=== PATIENT | female | born 1950 | race Caucasian/White ===

== ENCOUNTER 2021-11-06 09:49 | Day surgery (SDC) | payer MEDICARE, SELFPAY ==
[2021-10-28 12:20] VITALS: BMI 31.6
--- NOTE | 2021-11-06 07:17 | WPDANESEPPF ---
Anes - Initial Pre Proc Eval Procedure: Operation Date: 11/06/21 11:00 Proposed Procedures p Cataract Extraction with Lens Implant-Left Eye - Scott Bullock MD Date/Time: 11/06/21 07:17 Surgeon: Scott Bullock MD Pre Op Diagnosis: H25.12 Patient Data Age: 71 Gender: F Height: 1.57 m Weight: 78.5 kg Allergies Allergy/AdvReac Type Severity Reaction Status Date / Time No Known Allergies Allergy Verified 11/06/21 10:23 Home Medications Medication Instructions Recorded Confirmed Type calcium carbonate 600 mg calcium 600 mg PO DAILY 10/28/21 11/06/21 History (1,500 mg) tablet famotidine 40 mg tablet 40 mg PO DAILY 10/28/21 11/06/21 History phentermine 37.5 mg tablet 37.5 mg PO DAILY 10/28/21 11/06/21 History simvastatin 10 mg tablet 10 mg PO DAILY 10/28/21 11/06/21 History Patient hx anesthesia problems: none Family hx anesthesia problems: none Results Review: All pre-operative results and documents have been reviewed as part of the pre-operative evaluation. [facility] Past Medical History Medical History (Updated 11/06/21 @ 07:17 by Karl Ashford DO) GERD (gastroesophageal reflux disease) Hyperlipidemia Social History Social History Smoking status: Never smoker Second hand tobacco smoke exposure: No Alcohol intake: never Substance use type: does not use Living arrangements: with family Spiritual care concerns: No Anes - Eval Final PreProcedure Day of Procedure 11/06/21 07:17 Patient weight: obese Heart: regular rate and rhythm Lungs: clear to auscultation and normal air movement Airway: Mallampati scale class II Neurological: alert and oriented Last oral intake: >/= 8 hours ASA classification: II Emergent: no Anesthetic plan: proceed Anesthesia type and monitoring: monitored anesthesia care and standard monitoring Results Review: All pre-operative results and documents have been reviewed as part of the pre-operative evaluation. Informed Consent: The patient's anesthetic plan and its attendant risks and benefits were discussed with the patient/family/POA. Questions were solicited and answers provided to the satisfaction of the patient/family/POA.
--- NOTE | 2021-11-06 09:46 | WPDHPUPDATE1 ---
History and Physical Update Update Date/Time: 11/06/21 09:46 History and Physical has been reviewed, including an updated exam of the patient. There are NO changes in the patient's condition. Risks, benefits, and alternatives have been discussed and questions answered. Patient agrees to proceed with procedure.
[2021-11-06 10:25] VITALS: BP 150/95; PULSE 92; RESP 20; TEMP 37.2; O2SAT 99
[2021-11-06 10:35] VITALS: BMI 30.4
[2021-11-06] MEDS: TETRACAINE HCL 0.5% OPHTH SOLN 4 ML BTL 1 DROP AFFCTD EYE ×3 (10:50→11:00)
[2021-11-06] MEDS: OFLOXACIN 0.3% OPHTH SOLN 5 ML BTL 1 DROP AFFCTD EYE ×3 (10:50→11:00)
[2021-11-06] MEDS: LIDOCAINE HCL 2% JELLY 5 ML TUBE 1 APPLIC AFFCTD EYE (11:35)
[2021-11-06] MEDS: LIDOCAINE HCL 1% PF INJ 5 ML VIAL 1 ML INTRAOCULA (11:53)
[2021-11-06] MEDS: HOME MEDICATION 1 EACH AFFCTD EYE (11:58)
[2021-11-06 12:03] VITALS: BP 140/81; PULSE 84; RESP 16; O2SAT 98
[2021-11-06] MEDS: acetaZOLAMIDE TAB 250 MG TABLET PO (12:09)
--- NOTE | 2021-11-06 12:26 | WPDANESPN ---
Anes - Prog Note Post-Op Date/Time: 11/06/21 12:26 Cardiovascular status: normal Respiratory status: normal Airway patency: baseline Mental status: baseline Post-Op hydration status: normal Vital Signs: Last Vital Signs Temp 37.2 C 11/06/21 10:25 Pulse 84 11/06/21 12:03 Resp 16 11/06/21 12:03 BP 140/81 11/06/21 12:03 Pulse Ox 98 11/06/21 12:03 O2 Del Method Room Air 11/06/21 12:03 Pain Score (VAS): 0 Post-procedural complaints: none Patient Feedback: Patient satisfied with anesthetic care. Other Findings: Patient vital signs back to baseline. Patient denies nausea and vomiting. Patient's pain under control. Patient OK for discharge.
--- NOTE | 2021-11-06 13:21 | W.PM.PROC2 ---
Procedure Note - Detailed Date of Procedure 11/06/21 Pre-op Diagnosis H25.12 Post-op Diagnosis Same Procedure Performed Cataract Extraction (by Phacoemulsification) and lntraocular Lens Implant LEFT eye Surgeon Scott Bullock MD Description of Procedure The eye was anesthetized with topical 0.75% bupivacaine. After intravenous sedation and placement of monitors, the patient was prepped and draped in the usual sterile manner. A lid speculum was placed. A paracentesis was made, and preservative free 1% lidocaine was instilled in the anterior chamber. The anterior chamber was then filled with Viscoat viscoelastic. A mina keratome was used to create the wound. Continuous tear anterior capsulotomy was performed. The lens was hydro dissected before being removed with phacoemulsification. The remaining lenticular cortex was removed with aspiration. The capsular bag was polished and filled with viscoelastic material. An intraocular lens was chosen, inspected, irrigated and placed within the capsular bag where it was seen to be centered and stable. The viscoelastic material was aspirated. The wound was closed and found to be watertight. Ciloxan drops were placed in the eye. The speculum was removed. A shield was applied. The patient tolerated the procedure well and left the operating room in satisfactory condition. Implants See chart Complications None Condition Stable Disposition Same day
== END 2021-11-06 12:27 | disposition home or self-care (01) ==
PROVIDERS: PCP Nurse Practitioner Adult Health; Visit Provider Student in an Organized Health Care Education/Training Program
PROC: (CPT 66983; principal; 2021-11-06 11:00)
DX: H25.12 Age-related nuclear cataract, left eye (principal)
CPT/HCPCS: 66984

== ENCOUNTER 2021-12-04 09:48 | Day surgery (SDC) | payer MEDICARE, SELFPAY ==
[2021-11-21 09:36] VITALS: BMI 31.0
--- NOTE | 2021-12-03 20:56 | WPDANESEPPF ---
Anes - Initial Pre Proc Eval Procedure: Operation Date: 12/04/21 11:00 Proposed Procedures p Cataract Extraction with Lens Implant-Right Eye - Scott Bullock MD Date/Time: 12/03/21 20:56 Surgeon: Scott Bullock MD Pre Op Diagnosis: H25.11 Patient Data Age: 71 Gender: F Height: 1.6 m Weight: 79.5 kg Allergies Allergy/AdvReac Type Severity Reaction Status Date / Time No Known Allergies Allergy Verified 12/04/21 10:26 Home Medications Medication Instructions Recorded Confirmed Type calcium carbonate 600 mg calcium 600 mg PO DAILY 10/28/21 11/21/21 History (1,500 mg) tablet famotidine 40 mg tablet 40 mg PO DAILY 10/28/21 11/21/21 History phentermine 37.5 mg tablet 37.5 mg PO DAILY 10/28/21 11/21/21 History simvastatin 10 mg tablet 10 mg PO DAILY 10/28/21 11/21/21 History Patient hx anesthesia problems: none Family hx anesthesia problems: none Results Review: All pre-operative results and documents have been reviewed as part of the pre-operative evaluation. [facility] Past Medical History Medical History (Updated 11/06/21 @ 07:17 by Karl Ashford DO) GERD (gastroesophageal reflux disease) Hyperlipidemia Social History Social History Smoking status: Never smoker Second hand tobacco smoke exposure: No Alcohol intake: never Substance use type: does not use Living arrangements: with family Spiritual care concerns: No Anes - Eval Final PreProcedure Day of Procedure 12/03/21 20:56 Patient weight: obese Heart: regular rate and rhythm Lungs: clear to auscultation and normal air movement Airway: Mallampati scale class II Neurological: alert and oriented Last oral intake: >/= 8 hours ASA classification: II Emergent: no Anesthetic plan: proceed Anesthesia type and monitoring: monitored anesthesia care and standard monitoring Results Review: All pre-operative results and documents have been reviewed as part of the pre-operative evaluation. Informed Consent: The patient's anesthetic plan and its attendant risks and benefits were discussed with the patient/family/POA. Questions were solicited and answers provided to the satisfaction of the patient/family/POA.
--- NOTE | 2021-12-04 09:43 | WPDHPUPDATE1 ---
History and Physical Update Update Date/Time: 12/04/21 09:43 History and Physical has been reviewed, including an updated exam of the patient. There are NO changes in the patient's condition. Risks, benefits, and alternatives have been discussed and questions answered. Patient agrees to proceed with procedure.
[2021-12-04 10:20] VITALS: BP 149/93; PULSE 106; RESP 18; TEMP 36.3; O2SAT 97
[2021-12-04] MEDS: TETRACAINE HCL 0.5% OPHTH SOLN 4 ML BTL 1 DROP AFFCTD EYE ×3 (10:23→10:33)
[2021-12-04] MEDS: OFLOXACIN 0.3% OPHTH SOLN 5 ML BTL 1 DROP AFFCTD EYE (10:23)
[2021-12-04] MEDS: LIDOCAINE HCL 2% JELLY 5 ML TUBE 1 APPLIC AFFCTD EYE (11:27)
[2021-12-04] MEDS: LIDOCAINE HCL 1% LOCAL INJ 2 ML AMPUL INFILTRATE (11:41)
[2021-12-04] MEDS: LIDOCAINE HCL 1% PF INJ 5 ML VIAL 1 ML INTRAOCULA (11:41)
[2021-12-04] MEDS: HOME MEDICATION 1 EACH AFFCTD EYE (11:49)
[2021-12-04] MEDS: NEOMYCIN/POLYMYXIN/DEXAMETH OP OINT 3.5 GM TUBE 1 APPLIC AFFCTD EYE (11:50)
[2021-12-04 11:52] VITALS: BP 137/79; PULSE 95; RESP 20; O2SAT 97
--- NOTE | 2021-12-04 11:52 | WPDANESPN ---
Anes - Prog Note Post-Op Date/Time: 12/04/21 11:52 Cardiovascular status: normal Respiratory status: normal Airway patency: baseline Mental status: baseline Post-Op hydration status: normal Vital Signs: Last Vital Signs Temp 36.3 C L 12/04/21 10:20 Pulse 106 H 12/04/21 10:20 Resp 18 12/04/21 10:20 BP 149/93 H 12/04/21 10:20 Pulse Ox 97 12/04/21 10:20 O2 Del Method Room Air 12/04/21 10:20 Pain Score (VAS): 0 Patient Feedback: Patient satisfied with anesthetic care.
--- NOTE | 2021-12-04 11:55 | W.PM.PROC2 ---
Procedure Note - Detailed Date of Procedure 12/04/21 Pre-op Diagnosis H25.11 Post-op Diagnosis Same Procedure Performed Cataract Extraction (by Phacoemulsification) and lntraocular Lens Implant RIGHT eye Surgeon Scott Bullock MD Description of Procedure The eye was anesthetized with topical 0.75% bupivacaine. After intravenous sedation and placement of monitors, the patient was prepped and draped in the usual sterile manner. A lid speculum was placed. A paracentesis was made, and preservative free 1% lidocaine was instilled in the anterior chamber. The anterior chamber was then filled with Viscoat viscoelastic. A mina keratome was used to create the wound. Continuous tear anterior capsulotomy was performed. The lens was hydro dissected before being removed with phacoemulsification. The remaining lenticular cortex was removed with aspiration. The capsular bag was polished and filled with viscoelastic material. An intraocular lens was chosen, inspected, irrigated and placed within the capsular bag where it was seen to be centered and stable. The viscoelastic material was aspirated. The wound was closed and found to be watertight. Ciloxan drops were placed in the eye. The speculum was removed. A shield was applied. The patient tolerated the procedure well and left the operating room in satisfactory condition. Implants See chart Complications None Condition Stable Disposition Same day
[2021-12-04] MEDS: acetaZOLAMIDE TAB 250 MG TABLET PO (12:00)
[2021-12-04 12:02] VITALS: BP 135/83; PULSE 92; RESP 20; O2SAT 99
== END 2021-12-04 12:16 | disposition home or self-care (01) ==
PROVIDERS: PCP Nurse Practitioner Adult Health; Visit Provider Student in an Organized Health Care Education/Training Program
PROC: (CPT 66983; principal; 2021-12-04 11:00)
DX: H25.11 Age-related nuclear cataract, right eye (principal)
CPT/HCPCS: 66984

== ENCOUNTER 2022-05-20 09:14 | Outpatient (CLI) | payer MEDICARE, SELFPAY ==
[2022-05-20 20:01] LABS: Basophils Percent Auto 0.5 % (0.2-1.2); Eosinophils Absolute Auto 0.1 K/mm3 (0-0.3); Hematocrit 45.4 % (37.0-47.0); Hemoglobin 14.7 g/dL (12.0-15.0); Immature Granulocyte Absolute 0.02 K/mm3 (0.00-0.031); Immature Granulocyte Percent A 0.3 % (0-0.5); Lymphocytes Percent Auto 26.5 % (18.3-44.2); Mean Corpuscular HGB Conc 32.4 g/dl (32-36); Mean Corpuscular Hemoglobin 32.2 pg (26-34); Mean Corpuscular Volume 99.6 fl (80-100); Mean Platelet Volume 10.6 fl (7.4-10.4); Monocytes Absolute Auto 0.5 K/mm3 (0.1-0.6); Monocytes Percent Auto 8.5 % (2.6-8.5); Neutrophils Absolute Auto 3.8 K/mm3 (1.3-6.7); Neutrophils Percent Auto 63.2 % (45.5-73.1); Platelet Count Result 318 k/mm3 (150-375); Red Blood Count 4.56 M/mm3 (4.2-5.4); Red Cell Distribution Width 12.5 % (11.5-14.5)
[2022-05-20 20:20] LABS: Alanine Aminotransferase 30 U/L (6-35); Albumin Level 4.6 g/dL (3.5-5.1); Alkaline Phosphatase 139 U/L (38-126); Anion Gap 8 mmol/L (8-16); Aspartate Amino Transferase 34 U/L (14-36); Bilirubin,Total 0.8 mg/dL (0.2-1.3); Blood Urea Nitrogen 33 mg/dL (7-17); Calcium 9.4 mg/dL (8.4-10.2); Carbon Dioxide 27 mmol/L (22-30); Chloride 105 mmol/L (98-107); Cholesterol 259 mg/dL (0-200); Estimated Glomerular Filt Rate > 60; Glucose 94 mg/dL (65-110); HDL Direct 76 mg/dL; Potassium 4.2 mmol/L (3.4-5.0); Sodium 140 mmol/L (137-145); Triglycerides 82 mg/dL (<150)
[2022-05-20 20:32] LABS: LDL Cholesterol Direct 120 mg/dL
[2022-05-20 23:15] LABS: Vitamin D 25 Hydroxy 32.3 ng/mL
== END 2022-05-20 09:15 | disposition home or self-care (01) ==
LOC: ANHBWCLAB 09:17
PROVIDERS: PCP Family Medicine; Visit Provider Family Medicine
DX: I67.82 Cerebral ischemia (principal); E78.5 Hyperlipidemia, unspecified; K21.9 Gastro-esophageal reflux disease without esophagitis; G47.33 Obstructive sleep apnea (adult) (pediatric); E55.9 Vitamin D deficiency, unspecified
CPT/HCPCS: 36415; 80053; 80061; 82306; 85025

== ENCOUNTER 2022-07-04 09:38 | Outpatient (CLI) | payer MEDICARE, SELFPAY ==
[2022-07-04 19:11] LABS: Alanine Aminotransferase 30 U/L (6-35); Albumin Level 4.3 g/dL (3.5-5.1); Alkaline Phosphatase 143 U/L (38-126); Anion Gap 9 mmol/L (8-16); Aspartate Amino Transferase 63 U/L (14-36); Bilirubin,Total 0.7 mg/dL (0.2-1.3); Blood Urea Nitrogen 34 mg/dL (7-17); Calcium 9.1 mg/dL (8.4-10.2); Carbon Dioxide 23 mmol/L (22-30); Chloride 106 mmol/L (98-107); Estimated Glomerular Filt Rate > 60; Glucose 106 mg/dL (65-110); Potassium 3.9 mmol/L (3.4-5.0); Sodium 138 mmol/L (137-145)
== END 2022-07-04 09:39 | disposition home or self-care (01) ==
PROVIDERS: PCP Family Medicine; Visit Provider Family Medicine
DX: R74.8 Abnormal levels of other serum enzymes (principal); R79.9 Abnormal finding of blood chemistry, unspecified
CPT/HCPCS: 36415; 80048; 80076

== ENCOUNTER 2022-08-06 02:21 | Day surgery (SDC) | payer MEDICARE, SELFPAY ==
[2022-07-24 13:07] VITALS: BMI 32.8
[2022-08-06 06:20] VITALS: BP 178/93; PULSE 93; RESP 18; TEMP 36.3; O2SAT 99; BMI 32.5
[2022-08-06] MEDS: LACTATED RINGERS 1,000 ML 150 ML IV CONT (06:41)
--- NOTE | 2022-08-06 07:08 | P.PNAN_ITS ---
Anes - Initial Pre Proc Eval Procedure: Operation Date: 08/06/22 07:30 Proposed Procedures p Esophagogastroduodenoscopy & Screening Colonoscopy - Dwight Lee MD Date/Time: 08/06/22 07:08 Surgeon: Dwight Yadav MD Pre Op Diagnosis: GERD, neoplasm screening Patient Data Age: 72 Gender: F Height: 1.6 m Weight: 83.3 kg Last Vital Signs Temp 36.3 C L 08/06/22 06:20 Pulse 93 08/06/22 06:20 Resp 18 08/06/22 06:20 BP 178/93 H 08/06/22 06:20 Pulse Ox 99 08/06/22 06:20 O2 Del Method Room Air 08/06/22 06:20 Allergies Allergy/AdvReac Type Severity Reaction Status Date / Time No Known Allergies Allergy Verified 08/06/22 06:26 Home Medications Medication Instructions Recorded Confirmed Type calcium carbonate 600 mg calcium 600 mg PO DAILY 10/28/21 08/06/22 History (1,500 mg) tablet omeprazole 20 mg capsule,delayed 20 mg PO DAILY #90 caps 05/20/22 08/06/22 Rx release meloxicam 15 mg tablet 15 mg PO DAILY 07/24/22 08/06/22 History simvastatin 10 mg tablet 10 mg PO DAILY 07/24/22 08/06/22 History Patient hx anesthesia problems: none Family hx anesthesia problems: none Results Review: All pre-operative results and documents have been reviewed as part of the pre- operative evaluation. [facility] Past Medical History Medical History (Updated 07/06/22 @ 21:07 by Jaxson Bullock MD) GERD (gastroesophageal reflux disease) Hyperlipidemia Family History Family History (Updated 05/20/22 @ 07:47 by Ofelia Huddleston MA) Father Hypertension Mother Heart disease Hypertension Sibling Hypertension Diabetes mellitus Social History Social History (Updated 05/20/22 @ 07:49 by Ofelia Huddleston MA) Smoking status: Former smoker Second hand tobacco smoke exposure: No Alcohol intake: never Substance use: never Substance use type: does not use Lack of Transportation: No Lack of Food: Never True Current Housing: I Have Housing Concerned About Future Housing: No Difficulty Paying Gas/Electric Bills: No Difficulty Paying for Meds: No Currently Unemployed: No Education: High School Diploma/GED Living arrangements: with family Occupation/Education: retired Gender identity (if verbalized by the patient): Female Spiritual care concerns: No Anes - Eval Final PreProcedure Day of Procedure 08/06/22 07:08 Patient weight: obese Heart: regular rate and rhythm Lungs: clear to auscultation and normal air movement Airway: Mallampati scale class II Neurological: alert and oriented Last oral intake: >/= 8 hours ASA classification: II Emergent: no Anesthetic plan: proceed Anesthesia type and monitoring: general GIVS and standard monitoring Results Review: All pre-operative results and documents have been reviewed as part of the pre- operative evaluation. Informed Consent: The patient's anesthetic plan and its attendant risks and benefits were discussed with the patient/family/POA. Questions were solicited and answers provided to the satisfaction of the patient/family/POA.
--- NOTE | 2022-08-06 07:30 | PM.HPGS ---
History of Present Illness History of Present Illness Consent: Risks, benefits, and alternatives have been discussed and questions answered. Patient agrees to proceed with procedure. Chief complaint: GERD, neoplasm screening Narrative: Norma Winn is a 72 year old female with gerd on omeprazole, last colonoscopy about 10 years ago Review of Systems Constitutional: Constitutional: Denies headache(s) and Denies weakness Eyes: Eyes: Denies blurry vision ENT: Reports Normal hearing present, Denies headache(s) and Denies neck pain Cardiovascular: Cardiovascular: Denies chest pain and Denies dyspnea Respiratory: Respiratory: Denies dyspnea Gastrointestinal: Gastrointestinal: Reports no additional gastrointestinal complaints Genitourinary: Genitourinary: Denies dysuria Musculoskeletal: Musculoskeletal: Denies neck pain Integumentary/Breasts: Skin/Breast: Denies dry skin Neurologic: Reports Normal hearing present, Denies headache(s) and Denies weakness Psychiatric: Psychiatric: Denies anxiety Endocrine: Endocrine: Denies change in body appearance Hematologic/Lymphatic: Hematologic/Lymphatic: Denies easy bleeding Allergic/Immunologic: Allergic/Immunologic: Denies urticaria PMFSH Past Medical History Medical History (Updated 07/06/22 @ 21:07 by Jaxson Bullock MD) GERD (gastroesophageal reflux disease) Hyperlipidemia Family History Family History (Updated 05/20/22 @ 07:47 by Ofelia Huddleston MA) Father Hypertension Mother Heart disease Hypertension Sibling Hypertension Diabetes mellitus Social History Social History (Updated 05/20/22 @ 07:49 by Ofelia Huddleston MA) Smoking status: Former smoker Second hand tobacco smoke exposure: No Alcohol intake: never Substance use: never Substance use type: does not use Lack of Transportation: No Lack of Food: Never True Current Housing: I Have Housing Concerned About Future Housing: No Difficulty Paying Gas/Electric Bills: No Difficulty Paying for Meds: No Currently Unemployed: No Education: High School Diploma/GED Living arrangements: with family Occupation/Education: retired Gender identity (if verbalized by the patient): Female Spiritual care concerns: No Meds Home Medications and Allergies Home Medications Medication Instructions Recorded Confirmed Type calcium carbonate 600 mg calcium 600 mg PO DAILY 10/28/21 08/06/22 History (1,500 mg) tablet omeprazole 20 mg capsule,delayed 20 mg PO DAILY #90 caps 05/20/22 08/06/22 Rx release meloxicam 15 mg tablet 15 mg PO DAILY 07/24/22 08/06/22 History simvastatin 10 mg tablet 10 mg PO DAILY 07/24/22 08/06/22 History Allergies Allergy/AdvReac Type Severity Reaction Status Date / Time No Known Allergies Allergy Verified 08/06/22 06:26 Vital Signs Vital Signs - 24 hr 08/06/22 06:20 Temperature 97.3 F L Pulse Rate 93 Respiratory Rate 18 Blood Pressure 178/93 H Pulse Oximetry 99 Oxygen Delivery Room Air Exam Const: General: comfortable and no acute distress HENMT: Face/Nose/Sinus: Normal nares present Eyes: General: appearance normal, both eyes and all related structures Neck: Neck: no JVD Resp: Auscultation: clear to auscultation bilaterally Cardio: Rate: regular rate Rhythm: regular rhythm GI: Inspection: non-distended GI Palp: Yes Soft to palpation Skin: General skin exam: normal color Neuro: General: gait normal Speech: normal speech Extrem: General: normal to inspection Psych: Mental Status: mental status grossly normal Assessment and Plan Assessment and plan (1) GERD (gastroesophageal reflux disease): Code(s): K21.9 - Gastro-esophageal reflux disease without esophagitis Status: Acute Assessment and Plan: egd with bx on ppi (2) Colon cancer screening: Code(s): Z12.11 - Encounter for screening for malignant neoplasm of colon Status: Acute Assessment and P
--- NOTE | 2022-08-06 07:46 | SUR.OPER ---
EGD END TIME: 737 COLON START TIME: 742
[2022-08-06 07:57] VITALS: BP 122/77; PULSE 83; RESP 18; O2SAT 99
[2022-08-06 08:07] VITALS: BP 144/85; PULSE 72; RESP 17; O2SAT 100
[2022-08-06 08:17] VITALS: BP 149/85; PULSE 72; RESP 17; O2SAT 100
== END 2022-08-06 08:26 | disposition home or self-care (01) ==
PROVIDERS: PCP Family Medicine; Visit Provider Internal Medicine Gastroenterology
PROC: 0DJ08ZZ Inspection of Upper Intestinal Tract, Via Natural or Artificial Opening Endoscopic (ICD-10-PCS; CPT 43235; principal; 2022-08-06 07:30)
DX: Z12.11 Encounter for screening for malignant neoplasm of colon (principal); D12.3 Benign neoplasm of transverse colon; K64.8 Other hemorrhoids; K21.9 Gastro-esophageal reflux disease without esophagitis; K44.9 Diaphragmatic hernia without obstruction or gangrene; K29.50 Unspecified chronic gastritis without bleeding; E78.5 Hyperlipidemia, unspecified; E66.9 Obesity, unspecified; Z68.32 Body mass index [BMI] 32.0-32.9, adult
CPT/HCPCS: 45385; 43239; 88305; J2704; J7120

== ENCOUNTER 2022-09-11 10:50 | Outpatient (CLI) | payer MEDICARE, SELFPAY ==
--- NOTE | ~2022-09-11 | MR_ITS ---
EXAMINATION: MR brain/brain stem wo/w con DATE: 09/11/2022 11:46 INDICATION: Benign neoplasm of cerebral meninges. TECHNIQUE: Magnetic resonance imaging (MRI) of the brain and brainstem was performed without and with 17 mL MultiHance intravenous contrast. COMPARISON: Brain MRI 07/08/2005 FINDINGS: There is an 11 mm enhancing extra-axial mass overlying right parietal lobe, consistent with a meningioma, new from 07/08/05. There is no intracranial hemorrhage or acute ischemic infarct. There are scattered areas of nonspecific increased T2-weighted signal intensity in the cerebral white matte r and saira. The ventricles are normal in size. There are likely changes of ocular lens replacement carey rgeries. The paranasal sinuses are clear. The mastoid air cells are normal. IMPRESSION: 1. 11 mm meningioma overlying right parietal lobe, new from 07/08/2005. 2. Extensive nonspecific cerebral white matter disease and pontine disease, which likely represents c hronic small vessel ischemic disease. Reviewed, dictated and finalized at location A. IMPRESSION: 1. 11 mm meningioma overlying right parietal lobe, new from 07/08/2005. 2. Extensive nonspecific cerebral white matter disease and pontine disease, whi ch likely represents chronic small vessel ischemic disease.
== END 2022-09-11 10:51 | disposition home or self-care (01) ==
LOC: ANHIMG 10:57
PROVIDERS: PCP Family Medicine; Visit Provider Nurse Practitioner
DX: D32.0 Benign neoplasm of cerebral meninges (principal); R93.0 Abnormal findings on diagnostic imaging of skull and head, not elsewhere classified
CPT/HCPCS: 70553; A9577

== ENCOUNTER 2022-10-14 06:26 | Day surgery (SDC) | payer MEDICARE, SELFPAY ==
[2022-10-02 12:08] VITALS: BMI 32.4
[2022-10-14] VITALS (7 sets, daily range): BP systolic 145–157; BP diastolic 84–98; PULSE 84–104; RESP 14–20; TEMP 37.4; O2SAT 97–99
--- NOTE | ~2022-10-14 | XR_ITS ---
EXAMINATION: XR fluoroscopy no charge INDICATION: Bilateral sacroiliac joint steroid injection TECHNIQUE: 75 intraoperative fluoroscopic images are submitted for review. Total fluoroscopic time is 31.4 seconds. COMPARISON: None available FINDINGS: Fluoroscopic images demonstrate bilateral sacroiliac joint injection. Please refer to proce dure note for full details. IMPRESSION: 1. Please refer to procedure note for full details. Reviewed, dictated and finalized at location D.
--- NOTE | 2022-10-14 07:17 | WPDHPUPDATE1 ---
History and Physical Update Update Date/Time: 10/14/22 07:17 History and Physical has been reviewed, including an updated exam of the patient. There are NO changes in the patient's condition. Risks, benefits, and alternatives have been discussed and questions answered. Patient agrees to proceed with procedure.
[2022-10-14] MEDS: LIDOCAINE HCL 1% PF INJ 5 ML VIAL AFFCTD EYE (07:51)
[2022-10-14] MEDS: BUPivacaine HCL 0.5% 10 ML AMP 2 ML INFILTRATE (08:06)
--- NOTE | 2022-10-14 08:07 | W.PM.PROC2 ---
Procedure Note - Detailed Date of Procedure 10/14/22 Pre-op Diagnosis Bilateral Sacroiliitis Sacral Spondylosis without radiculopathy Post-op Diagnosis Same Procedure Performed Bilateral SI joint steroid injection with fluoroscopy Surgeon Ezio Gallagher MD Parks Worker None Anesthesia Local Indications Low Back Pain Findings None Description of Procedure INFORMED CONSENT: Risks, benefits and alternatives to the procedure were discussed in detail with the patient who expressed explicit understanding and consent to proceed. Patient was informed verbally and in written form regarding the risks associated with the procedure including the low risk of serious infection, bleeding/bruising, allergic reaction, nerve or organ injury, paralysis, procedural site pain or discomfort, worsening pain and/or mobility, failure to treat and/or disfigurement. The patient expressed explicit understanding and consent to proceed. All materials required for the procedure were available prior to procedure start. Site and side were marked prior to procedure and confirmed in the presence of the patient. PROCEDURE IN DETAIL: The patient was brought to the procedural suite and placed in the prone position. Patient was made comfortable with use of pillows under the head/chest, hips and ankles. Skin overlying the injection site on the affected side(s) was prepared broadly with ChloraPrep applicator and draped in a sterile manner. Aseptic technique was used throughout. The SI joint was identified in the AP view and contralateral oblique angulation with caudal tilt was utilized to optimize visualization of the inferior and medial joint line representing the posterior portion of the joint. Local anesthesia was established by infiltration with approximately 5 mL of 2% lidocaine via a 1-1/2 inch 27-gauge needle. A 22-gauge 3.5 inch Quincke spinal needle was advanced until the needle entered the inferior third of the joint space approximately 1cm cephalad from its most inferior point. In the AP view, 1.5 mL of Omnipaque-300 contrast medium was injected after negative aspiration for CSF, blood or other bodily fluid, showing appropriate intra-articular spread of contrast without evidence of intravascular, perineural or intrathecal placement. A 1.5 mL solution containing 5.0 mg of dexamethasone in 0.5% PF bupivacaine was injected after repeat negative aspiration. Appropriate spread of the injectate was confirmed with washout of previous injected contrast. No parasthesias were elicited. Needle was removed completely intact without difficulty. Images were saved and documented in the patient chart. Patient's skin was cleansed and sterile bandage applied. The patient tolerated the procedure well. The patient was transported to the recovery area in stable condition where they were observed for an appropriate amount of time prior to discharge, without evidence of complication. The patient was instructed to avoid excessive activity for the next 48 hours, including climbing and frequent use of stairs. Showers only for 48 hours. They were instructed not to drive or operate heavy machinery for 24 hours. They are to monitor for severe headaches, fevers, chills, night sweats, erythema/swelling at the site or any other signs of infection, bleeding/bruising, bowel or bladder changes as well as new pain, weakness or numbness in the upper or lower extremity. Should they notice these changes, they are instructed to call our office immediately or report directly to the nearest Emergency Department if no answer or if after posted office hours. COMPLICATIONS: None COMMENTS: None EXPOSURE: Time: 31.4s, Dose: 24.01mGy CONTRAST WASTED: 27mL Omnipaque-300. Drains No Packing No Pathology None sent Complications No immediate complications Condition Stable Disposition PACU [facility] Billing Surgery - Charge Forward: Surgery Billing
== END 2022-10-14 08:20 | disposition home or self-care (01) ==
PROVIDERS: PCP Family Medicine; Visit Provider Anesthesiology Pain Medicine
PROC: (CPT G0260; principal; 2022-10-14 07:30)
DX: M46.1 Sacroiliitis, not elsewhere classified (principal)
CPT/HCPCS: G0260 ×2; 27096; 99199

== ENCOUNTER 2022-11-04 09:00 | Outpatient (RCR) | payer MEDICARE, SELFPAY ==
--- NOTE | 2022-10-01 09:55 | OPREHPOC ---
Outpatient Therapy Plan of Care This is a Multidisciplinary Plan of Care that may contain components documented by all disciplines (PT, OT, and ST.) PT Problem 1 PT Problem #1 Knowledge Deficit PT Goal 1 Goal Pt to be IND with issued HEP Target Visit 8 PT Problem 2 PT Problem #2 Pain PT Goal 1 Goal Pt to report pain no greater than 3/10 in the last week Target Visit 8 PT Goal 2 Goal Pt to report being able to stand for 1 hour prior to an increase in back pain. Target Visit 8 PT Problem 3 PT Problem #3 Impaired Functional Mobil PT Goal 1 Goal Pt to improve 2 min walk distance from 365ft to 400ft Target Visit 8 PT Goal 2 Goal Pt to improve Tinetti score from 15/28 to 22/28 Target Visit 8 PT Problem 4 PT Problem #4 Impaired Strength PT Goal 1 Goal Pt to improve bridger hip abduction strength to 4/5 Target Visit 8 PT Goal 2 Goal Pt to improve 5xSTS time from 23s to 18s Target Visit 8
--- NOTE | 2022-10-01 09:55 | PTOPEVAL1 ---
Assessment and note entered by Nandini Zapien, PT, DPT Evaluation Information Assessment Status Evaluation Diagnosis low back pain Onset chronic Subjective Information Pt states she has severe arthritis in her lower back. She states after doing work around her home she has to hunch forward because the pain is so bad. She states she never takes a break, no matter how badly her back is hurting. She states she reports her pain as being low because she is just used to dealing with it. She states in the morning her legs feel stiff and she is never sure if they are going to hold her or not. She rates her pain at a 3-4 at the worst when viewing the [place] and [place] pain scale. Reported Pain Level Pain Score 0: Self Report Assessment PT Clinical Summary Norma presents to therapy today for her initial evaluation with a diagnosis of chronic low back pain, spondylosis, and polyosteoarthritis. Today she demonstrates decreased core and BLE strength throughout. She demonstrates balance and strength deficits placing her at an increased risk of falls per the 5xSTS test and Tinetti balance screen. She ambulates with moderate gait deviations including a widened, weaving, and shuffled gait. She demonstrates postural abnormalities as well with noted pelvic asymmetries in supine. Skilled therapy services are indicated to address the deficits noted above, for gait and balance training , for pain management, to improve safety, and to promote improved functional mobility. Plan of Care Interventions Electrical Stimulation,Gait Training,Hot Pack/Cold Pack,Manual Therapy,Neuro Re-education,Patient/ Caregiver Educati,Therapeutic Activities, Therapeutic Exercise PT Services Indicated Yes Treatment Frequency and 2x/wk for 4 wks Duration These treatments will address the objective and functional deficits as defined above. The patient will be advanced safely and appropriately in order for the patient to progress towards his/her prior level of function. Additional exercises will be introduced and as well as a comprehensive home exercise program upon discharge, if needed, ?to ensure carryover of functional gains achieved in the clinic. This treatment plan has been reviewed and agreement upon by the patient.
--- NOTE | 2022-10-21 08:43 | PCPTNOTE ---
Patient called to say she could not come in because her back hurts so bad she can't walk.
--- NOTE | 2022-11-04 12:57 | PTOPDC ---
Assessment and note entered by Nandini Zapien, PT, DPT Evaluation Information Assessment Status Progress Diagnosis low back pain Onset chronic Subjective Information Pt states for 2-3 days after therapy she has to hold onto the couch and urrutia d/t pain. She reports she is still able to go out an work out in the garden daily. Pt states she can stand for hours with pain but not to where she needs to go sit down, she states she does not let herself give into the pain. Reported Pain Level Pain Score 4,3: Self Report Assessment PT Clinical Summary Norma presents to therapy today for her initial evaluation with a diagnosis of chronic low back pain, spondylosis, and polyosteoarthritis. Today she continues to demonstrate decreased core and LE strength but has made some improvements. He improved her 2 min walk test distance slightly and improve her 5xSTS time from 23s to 15s. It was recommended that pt continue with skilled therapy services to continue to progress towards goals. Pt states she would rather continue the exercises on her own. She will therefore be discharged at this time per request. Plan of Care PT Services Indicated Yes
== END 2022-11-04 14:00 | disposition home or self-care (01) ==
LOC: ANHGOSHPT 09:00
PROVIDERS: PCP Family Medicine; Visit Provider Anesthesiology Pain Medicine
DX: M54.9 Dorsalgia, unspecified (principal); M47.816 Spondylosis without myelopathy or radiculopathy, lumbar region; M46.1 Sacroiliitis, not elsewhere classified; M96.1 Postlaminectomy syndrome, not elsewhere classified; M15.9 Polyosteoarthritis, unspecified
CPT/HCPCS: 97110; 97112; 97161; 97530

== ENCOUNTER 2022-11-07 09:09 | Outpatient (CLI) | payer MEDICARE, SELFPAY ==
[2022-11-07 18:38] LABS: Alanine Aminotransferase 31 U/L (6-35); Albumin Level 4.3 g/dL (3.5-5.1); Alkaline Phosphatase 126 U/L (38-126); Aspartate Amino Transferase 50 U/L (14-36); Bilirubin,Total 0.9 mg/dL (0.2-1.3)
== END 2022-11-07 09:10 | disposition home or self-care (01) ==
PROVIDERS: PCP Family Medicine; Visit Provider Nurse Practitioner
DX: R74.01 Elevation of levels of liver transaminase levels (principal); R74.8 Abnormal levels of other serum enzymes; E78.5 Hyperlipidemia, unspecified; R53.83 Other fatigue
CPT/HCPCS: 36415; 80076; 84443

== ENCOUNTER 2022-11-11 06:51 | Day surgery (SDC) | payer MEDICARE, SELFPAY ==
--- NOTE | ~2022-11-11 | XR_ITS ---
EXAMINATION: XR fluoroscopy no charge DATE: 11/11/2022 8:10 CDT INDICATION: JUANY L3,4,5 MED BRANCH/DORSAL RAMUS BLOCK . TECHNIQUE: 10 fluoroscopic images of the lumbar spine were obtained during bilateral L3-L5 medial bra nch/dorsal ramus blocks performed by the surgeon. I was not present in the operating room. Fluoroscop y exposure time was 26.5 seconds. Air Kerma 18.72 mGy. COMPARISON: None FINDINGS: Bilateral medial branch blocks at 3 levels, with needles and contrast. IMPRESSION: Fluoroscopic documentation of bilateral L3-L5 medial branch/dorsal ramus blocks. Please refer to the operative note for complete procedural details . Reviewed, dictated and finalized at location K. IMPRESSION: Fluoroscopic documentation of bilateral L3-L5 medial branch/dorsal ramus blocks . Please refer to the operative note for complete procedural details .
--- NOTE | 2022-11-11 07:19 | WPDHPUPDATE1 ---
History and Physical Update Update Date/Time: 11/11/22 07:19 History and Physical has been reviewed, including an updated exam of the patient. There are NO changes in the patient's condition. Risks, benefits, and alternatives have been discussed and questions answered. Patient agrees to proceed with procedure.
[2022-11-11 07:24] VITALS: BP 144/79; PULSE 91; RESP 18; TEMP 36.7; O2SAT 100
[2022-11-11 08:12] VITALS: BP 181/84; PULSE 95; RESP 14; O2SAT 98
[2022-11-11] MEDS: BUPivacaine HCL 0.5% 10 ML AMP INFILTRATE (08:16)
[2022-11-11] MEDS: LIDOCAINE HCL 1% PF INJ 5 ML VIAL XX (08:17)
[2022-11-11 08:20] VITALS: BP 161/75; PULSE 96; RESP 19; O2SAT 97
--- NOTE | 2022-11-11 08:25 | W.PM.PROC2 ---
Procedure Note - Detailed Date of Procedure 11/11/22 Pre-op Diagnosis lumbosacral spondylosis, chronic low back pain Post-op Diagnosis Same Procedure Performed bilateral L3, L4, L5 medial branch/ dorsal ramus blocks (#1) under fluoroscopic guidance with contrast control. Surgeon Ezio Gallagher MD Landscape Horticulture Instructor None. Anesthesia Local Indications diagnostic/prognostic effort to treat chronic low back pain secondary to lumbosacral spondylosis and anticipation of possible thermal radiofrequency ablation. Findings None. Description of Procedure INFORMED CONSENT: Risks, benefits and alternatives to the procedure were discussed in detail with the patient who expressed explicit understanding and consent to proceed. Patient was informed verbally and in written form regarding the risks associated with the procedure including the low risk of serious infection, bleeding/bruising, allergic reaction, nerve or organ injury, paralysis, procedural site pain or discomfort, worsening pain and/or mobility, failure to treat and/or disfigurement. The patient expressed explicit understanding and consent to proceed. All materials required for the procedure were available prior to procedure start. Site and side were marked prior to procedure and confirmed in the presence of the patient. PROCEDURE IN DETAIL: The patient was brought to the procedural suite and placed in the prone position. Patient was made comfortable with use of pillows under the head/chest, hips and ankles. Skin overlying the injection site on the affected side(s) was prepared broadly with ChloraPrep applicator and draped in a sterile manner. Aseptic technique was used throughout. The endplates of the vertebral bodies at the site(s) of interest were aligned in the AP view. Ipsilateral oblique angulation was utilized to optimize visualization of the intersection between the superior articulating process and transverse process at each target site. Local anesthesia was established by infiltration with approximately 5 mL of 1% lidocaine via a 1-1/2 inch 27-gauge needle. A 25-gauge 3.5 inch Quincke spinal needle was advanced until the needle tip contacted periosteum at the target site, Right L3. Lateral view was utilized to confirm the appropriate placement of the needle tip just anterior to the facet line and superior to the pedicle. In the Lateral view, 0.25 mL of Omnipaque 300 contrast medium was injected after negative aspiration for CSF, blood or other bodily fluid, showing appropriate extra-articular spread of contrast without evidence of intravascular, foraminal or intrathecal placement. A 0.5 mL solution of 0.5% PF bupivacaine was injected after negative repeat aspiration. Appropriate spread of the injectate was confirmed with washout of previously injected contrast. No parasthesias were elicited. Needle was removed completely intact without difficulty. The same exact procedure was repeated for all remaining levels on the ipsilateral side, right L4, L5 medial branches/dorsal ramus, modified as necessary to accommodate for the new target location with identical findings and results and no evidence of complication. The same exact procedure was repeated for all remaining levels on the contralateral side, left L3, L4, L5 medial branches/dorsal ramus, modified as necessary to accommodate for the new target location with identical findings and results and no evidence of complication. Images were saved and documented in the patient chart. Patient's skin was cleaned and sterile bandage applied. The patient tolerated the procedure well. The patient was transported to the recovery area in stable condition where they were observed for an appropriate amount of time prior to discharge, without evidence of complication. Patient was instructed on the appropriate completion of a pain diary over the next 12-24 hours. The patient was instructed to avoid excessive activity for the next 48 hours, including climbing and frequen
[2022-11-11 08:28] VITALS: BP 136/82; PULSE 98; RESP 18; O2SAT 98
== END 2022-11-11 08:45 | disposition home or self-care (01) ==
PROVIDERS: PCP Family Medicine; Visit Provider Anesthesiology Pain Medicine
PROC: (CPT 64493; principal; 2022-11-11 08:30)
DX: M47.817 Spondylosis without myelopathy or radiculopathy, lumbosacral region (principal); M54.59 Other low back pain
CPT/HCPCS: 64493 ×2; 99199

== ENCOUNTER 2022-11-26 07:33 | Outpatient (CLI) | payer MEDICARE, SELFPAY ==
--- NOTE | ~2022-11-26 | US_ITS ---
EXAMINATION: US abdomen limited DATE: 11/26/2022 09:45 INDICATION: Abnormal levels of other serum enzymes TECHNIQUE: Multiple grayscale and Doppler ultrasound images of the abdomen were obtained. COMPARISON: None available FINDINGS: The head and body of the pancreas are normal. The pancreatic tail is obscured by bowel gas. The liver is normal with normal echogenicity and echotexture. No surface nodularity. Normal hepatope jean flow in the main portal vein. There is a 5 mm gallbladder polyp versus stone. There are no gallst ones are pericholecystic fluid. The normal common bile duct measures 5 mm. There was no sonographic M urphy sign. IMPRESSION: 1. 5 mm gallbladder polyp versus stone. No sonographic correlate for the patient's symptoms. Reviewed, dictated and finalized at location A. IMPRESSION: 1. 5 mm gallbladder polyp versus stone. No sonographic correlate for the patien t's symptoms.
--- NOTE | 2022-11-26 07:40 | ECHO_ITS ---
Patient Info Name: Norma Winn Age: 72 years : 1950 Gender: Female Ht: 63 in Wt: 182 lbs BSA: 1.95 m2 HR: 88 bpm BP: 149 / 84 mmHg Heart Rhythm: Sinus Rhythm Exam Date: 11/26/2022 7:48 AM Exam Location: [facility] Patient Status: Outpatient Admit Date: 11/26/2022 Staff Ordering Physician: Saravanan Love DO Car Spotter: Sol Dos Santos RDCS Attending Provider: Saravanan Love DO Exam Type: CA echo doppler color flow Study Info Indications R00.2 - Palpitations Complete two-dimensional, color flow and Doppler transthoracic echocardiogram is performed. Summary 1. Complete two-dimensional, color flow and Doppler transthoracic echocardiogram is performed. 2. Left ventricular chamber dimension is normal. 3. Left ventricular systolic function is normal, estimated at 60-65%. 4. There is mild concentric increased left ventricular wall thickness. 5. The left ventricular diastolic function is grade I diastolic dysfunction. 6. Left atrial chamber dimension is mildly enlarged. 7. The mitral valve has mildly calcified annulus. 8. There is trace tricuspid valve regurgitation. 9. No pulmonary hypertension, estimated pulmonary arterial systolic pressure is 24 mmHg. Left Ventricle Tissue doppler E/e' was not performed. Left ventricular chamber dimension is normal. Left ventricular systolic function is normal, estimated at 60-65%. There is mild concentric increased left ventricular wall thickness. The left ventricular diastolic function is grade I diastolic dysfunction. Right Ventricle Right ventricular systolic function is normal and with normal TAPSE 2.0 cm. Right ventricular chamber dimension is normal. Left Atria Left atrial chamber dimension is mildly enlarged. Right Atria Right atrial chamber dimension is normal. Aortic Valve The aortic valve is trileaflet. There is no aortic valve stenosis. There is no aortic valve regurgitation. Pulmonic Valve There is no pulmonic regurgitation. Mitral Valve The mitral valve has mildly calcified annulus. There is no mitral valve stenosis. There is no mitral valve regurgitation. Tricuspid Valve There is trace tricuspid valve regurgitation. No pulmonary hypertension, estimated pulmonary arterial systolic pressure is 24 mmHg. Pericardium/Pleural There is no pericardial effusion. Inferior Vena Cava Normal inferior vena cava with >50% collapse upon inspiration consistent with normal right atrial pressure, 5 mmHg. Aorta The aortic root size at the sinus of Valsalva is normal. Left Ventricular Outflow Tract Name Value Normal LVOT 2D LVOT Diameter 1.8 cm LVOT Doppler LVOT Peak Gradient 5 mmHg LVOT Mean Gradient 2 mmHg LVOT VTI 25 cm LVOT VTI/AV VTI Ratio 0.9 LVOT Stroke Volume 62 ml LVOT CO 4.4 l/min LVOT CI 2.3 l/min/m2 Pulmonic Valve Name Value Normal R
== END 2022-11-26 07:34 | disposition home or self-care (01) ==
PROVIDERS: PCP Family Medicine; Visit Provider Internal Medicine Cardiovascular Disease
DX: K82.4 Cholesterolosis of gallbladder (principal); D32.0 Benign neoplasm of cerebral meninges; R93.1 Abnormal findings on diagnostic imaging of heart and coronary circulation; I20.8 Other forms of angina pectoris; R53.83 Other fatigue; R74.8 Abnormal levels of other serum enzymes; R00.2 Palpitations; I34.81 Nonrheumatic mitral (valve) annulus calcification
CPT/HCPCS: 76705; 93306

== ENCOUNTER 2023-05-21 08:34 | Outpatient (CLI) | payer MEDICARE, SELFPAY ==
[2023-05-21 19:17] LABS: Alanine Aminotransferase 22 U/L (6-35); Alkaline Phosphatase 113 U/L (38-126); Anion Gap 6 mmol/L (8-16); Aspartate Amino Transferase 45 U/L (14-36); Bilirubin,Total 0.7 mg/dL (0.2-1.3); Blood Urea Nitrogen 23 mg/dL (7-17); Calcium 9.7 mg/dL (8.4-10.2); Carbon Dioxide 26 mmol/L (22-30); Chloride 105 mmol/L (98-107); Cholesterol 160 mg/dL (0-200); Estimated Glomerular Filt Rate > 60; Glucose 82 mg/dL (65-110); HDL Direct 59 mg/dL; Potassium 4.3 mmol/L (3.4-5.0); Sodium 137 mmol/L (137-145); Triglycerides 92 mg/dL (<150)
[2023-05-21 19:20] LABS: Hematocrit 44.7 % (37.0-47.0); Hemoglobin 14.2 g/dL (12.0-15.0); Mean Corpuscular HGB Conc 31.8 g/dl (32-36); Mean Corpuscular Hemoglobin 31.6 pg (26-34); Mean Corpuscular Volume 99.3 fl (80-100); Mean Platelet Volume 10.4 fl (7.4-10.4); Platelet Count Result 283 k/mm3 (150-375); Red Cell Distribution Width 12.4 % (11.5-14.5); White Blood Count 5.7 K/mm3 (4.5-10.0)
[2023-05-21 19:28] LABS: LDL Cholesterol Direct 69 mg/dL
[2023-05-21 19:44] LABS: Vitamin D 25 Hydroxy 45.6 ng/mL
[2023-05-21 19:59] LABS: Hepatitis B Surface Antigen Negative (Negative)
[2023-05-21 20:05] LABS: HAV RESULT Negative (Negative); Hepatitis B Core IgM Result Negative (Negative)
[2023-05-21 20:16] LABS: Hepatitis C Virus Antibody Negative (Negative)
[2023-05-21 21:29] LABS: Hepatitis A Antibody IgM 0.01 s/c
[2023-05-21 21:30] LABS: Hepatitis B Core Antibody, IgM 0.03 S/C; Hepatitis B Surface Antigen 0.01 S/C; Hepatitis C Virus Antibody 0.06 S/C
== END 2023-05-21 08:35 | disposition home or self-care (01) ==
PROVIDERS: PCP Family Medicine; Visit Provider Family Medicine
DX: D32.0 Benign neoplasm of cerebral meninges (principal); E55.9 Vitamin D deficiency, unspecified; E66.9 Obesity, unspecified; I10 Essential (primary) hypertension; R53.83 Other fatigue; R74.8 Abnormal levels of other serum enzymes; E78.5 Hyperlipidemia, unspecified; R74.01 Elevation of levels of liver transaminase levels
CPT/HCPCS: 36415; 80053; 80061; 80074; 82306; 85027

== ENCOUNTER 2023-06-23 10:39 | Outpatient (CLI) | payer MEDICARE, SELFPAY ==
--- NOTE | ~2023-06-23 | XR_ITS ---
XR finger 4th RT min 2V DATE: 06/23/2023 11:04 INDICATION: Trigger finger. TECHNIQUE: 4 views COMPARISON: None FINDINGS: No fracture or dislocation, periosteal reaction or bone destruction. Joint spaces are pres erved. No erosive change. 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 IMPRESSION: No significant abnormality of fourth digit Reviewed, dictated and finalized at location L.
== END 2023-06-23 10:40 | disposition home or self-care (01) ==
LOC: ANHBWCLAB 10:43 → ANHBWCIMG 11:11
PROVIDERS: PCP Family Medicine; Visit Provider Family Medicine
DX: M65.30 Trigger finger, unspecified finger (principal)
CPT/HCPCS: 73140

== ENCOUNTER 2023-11-10 09:44 | Outpatient (CLI) | payer MEDICARE, SELFPAY ==
[2023-11-10 18:55] LABS: Hematocrit 42.2 % (37.0-47.0); Hemoglobin 13.5 g/dL (12.0-15.0); Mean Corpuscular Hemoglobin 32.1 pg (26-34); Mean Corpuscular Volume 100.2 fl (80-100); Mean Platelet Volume 10.1 fl (7.4-10.4); Platelet Count Result 295 k/mm3 (150-375); Red Blood Count 4.21 M/mm3 (4.2-5.4); Red Cell Distribution Width 12.3 % (11.5-14.5); White Blood Count 6.6 K/mm3 (4.5-10.0)
[2023-11-10 19:38] LABS: Alanine Aminotransferase 36 U/L (6-35); Albumin Level 4.3 g/dL (3.5-5.1); Alkaline Phosphatase 114 U/L (38-126); Anion Gap 10 mmol/L (4-12); Aspartate Amino Transferase 71 U/L (14-36); Blood Urea Nitrogen 28 mg/dL (7-17); Calcium 9.4 mg/dL (8.4-10.2); Carbon Dioxide 27 mmol/L (22-30); Chloride 101 mmol/L (98-107); Estimated Glomerular Filt Rate > 60; Glucose 89 mg/dL (65-110); Potassium 4.4 mmol/L (3.4-5.0); Sodium 138 mmol/L (137-145)
[2023-11-10 19:50] LABS: Vitamin D 25 Hydroxy 39.2 ng/mL
[2023-11-10 20:00] LABS: Thyroid Stimulating Hormone 0.893 uIU/mL (0.465-4.680)
== END 2023-11-10 09:45 | disposition home or self-care (01) ==
PROVIDERS: PCP Family Medicine; Visit Provider Family Medicine
DX: E66.9 Obesity, unspecified (principal); I10 Essential (primary) hypertension; R00.2 Palpitations; R53.83 Other fatigue; R74.8 Abnormal levels of other serum enzymes; E78.5 Hyperlipidemia, unspecified; E55.9 Vitamin D deficiency, unspecified
CPT/HCPCS: 36415; 80053; 82306; 84443; 85027

== ENCOUNTER 2024-06-13 07:57 | Outpatient (CLI) | payer MEDICARE, SELFPAY ==
--- OUTSIDE RECORDS SUMMARY | 2024-06-13 08:07 | XMS_ITS | Encounter Summary ---
Author Organization [facility] Address [address] [place] [address] Care Team Providers Care Marine Service Manager Name Role Phone Jess Hobson MD Primary Care Provider [phone] Jaxson Bullock MD Primary Care Provider [phone] Encounter Details Date Type Department Care Team (Late st Contact Info) Description 05/13/2024 Telephone [facility] - Ophthalmology [address] [place] [phone] Kristal Merritt, ACCOUNTANT CLERK-[address] [place] [address] Social History Tobacco Use Types Packs/Day Years Used Date Smoking Tobacco: Never Assessed Sex and Gender Information Value Date Recorded Sex Assigned at Not on file Gender Identity Not on file Sexual Orientation Not on file documented as of this encounter Miscellaneous Notes * Telephone Encounter - Partha Lovelace - 05/13/2024 12:59 PM CST Patient is needing to reschedule her appt on 05/17 to June. Duration for visit is 60. Unable to reschedule for 30 mins slot. Please advise. MEASUREMENT ENGINEER documented in this encounter Plan of Treatment Not on file documented as of this encounter Visit Diagnoses Not on filedocumented in this encounter Care Teams Marine Service Manager Relationship Specialty Start Date End Date Jess Hobson MD [address] [place] [address] [address] [place] [address] PCP - General 08/08/22 06/06/24 Jaxson Bullock MD [address] [place] [address] PCP - General Family Medicine 06/07/24 documented as of this encounter
--- OUTSIDE RECORDS SUMMARY | 2024-06-13 08:07 | XMS_ITS | Clinical Summary ---
Author Organization [facility] Address [address] [facility] [place] [address] Care Team Providers Care Summer Sessions Director Name Role Phone Jaxson Bullock MD Primary Care Provider [phone] Source Comments [facility],non-owned Affiliates and Associated Physician Practices is amultiple site organization consisting of ambulatory clinics and hospital sitesin [place], [place], [place] and [place]. This disclosure is being madepursuant to the Care Everywhere program and may not contain all information available regarding this patient. Last updated [email or web address] [facility] Allergies No known active allergies Medications * Be aware that medications may not be up to date on this document. Alwaysverify current medications with the patient. 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 Cerebral meningioma 06/07/2024 Hypercholesterolemia 07/16/2016 Encounters Date Type Department Care Team Description 06/07/2024 3:10 PM SUPERVISOR URANIUM PROCESSING Clinical Support [facility] - Op[facility]mology [address] [place] [phone] Kristal Merritt APRN-CNP Acquired myogenic ptosis of eyelid, bilateral (Primary Dx) 06/07/2024 2:30 PM SUPERVISOR URANIUM PROCESSING Office Visit [facility] [address] [place] [phone] Kristal Merritt APRN-CNP Acquired myogenic ptosis of eyelid, bilateral (Primary Dx) 06/07/2024 Travel 05/13/2024 Telephone [facility] - Ophthalmology [address] [place] [phone] Kristal Merritt APRN-CNP from Last 3 Months Social History Tobacco Use Types Packs/Day Years Used Date Smoking Tobacco: Never Assessed Sex and Gender Information Value Date Recorded Sex Assigned at Not on file Gender Identity Not on file Sexual Orientation Not on file Plan of Treatment Health Maintenance Due Date Last Done Comments BONE DENSITY TESTING 1950 MEDICARE AWV 12 MONTHS 1950 HEPATITIS C SCREENING 04/12/1966 DTAP/TDAP/TD VACCINES (1 - Tdap) 1967 PNEUMOCOCCAL VACCINE 50+ (1 of 1 - PCV) 1998 ZOSTER VACCINE (1 of 2) 1998 Respiratory Syncytial Virus (RSV) Vaccine Pt: or over 60 yrs (1 - 1-dose 75+ series) 2023 COVID-19 VACCINE ( - 2023-2 5 season) 2023 INFLUENZA VACCINE (#1) 2023 0, 01/28/2018, 01/30/2014 DEPRESSION SCREENING 04/06/2024 HEPATITIS B VACCINE Aged Out No longe r eligible based on patient's age to complete this topic HIB VACCINE Aged Out No longer eligi ble based on patient's age to complete this topic HPV VACCINE Aged Out No longer eligi ble based on patient's age to complete this topic MENINGOCOCCAL (Group B) VACCINE Aged Out No longer eligible b ased on patient's age to complete this topic MENINGOCOCCAL VACCINE Aged Out No magi cleo eligible based on patient's age to complete this topic Procedures Procedure Name Priority Date/Time Associated Diagnosis Comments SKINNER AUTO VISUAL FIELD EXTENDED Routine 06/07/2024 3:09 PM SUPERVISOR URANIUM PROCESSING Acquired myogenic ptosis of eyelid, bilateral EYE EXAM 04/20/2024 from Last 3 Months Results * SKINNER AUTO VISUAL FIELD EXTENDED (06/07/2024 3:09 PM SUPERVISOR URANIUM PROCESSING) Anatomical Region Laterality Modality Head External-Camera Photography Narrative 06/12/2024 10:09 PM CDT Images from the original result were not included. Skinner visual field Reversible superior visual field deficit Right: 16 degrees to 28 degrees Left: 17 degrees to 30 degrees Kristal Merritt SURGICAL SERVICES ASSISTANT-SOAKER MEAT OPHTHALMOLOGY S CHED ORD W PACS * EYE EXAM (04/20/2024) Anatomical Region Laterality Modality Other Narrative 04/20/2024 Ordered by an unspecified provider. Scanned Document SCANNING ONLY from Last 3 Months Care Teams Summer Sessions Director Relationship Specialty Start Date End Date Jaxson Bullock MD [address] [place] [address] PCP - General Family Medicine 06/07/24
--- OUTSIDE RECORDS SUMMARY | 2024-06-13 08:07 | XMS_ITS | Clinical Summary ---
Author Organization [facility] Address [address], [address] [address] Phone Care Team Providers Care Gear Changer Name Role Phone Jess Hobson MD Primary Care Provider [phone] Allergies No known active allergies Medications simvastatin (ZOCOR) 10 MG Tablet Take 10 mg by mouth daily. Active omeprazole (PRILOSEC) 40 MG CAPSULE DELAYED RELEASE Take 40 mg by mouth daily. Active baclofen (LIORESAL) 10 MG Tablet Take 10 mg by mouth 2 times daily. Active Aspirin 81 MG Tablet Take 81 mg by mouth daily. Active Zinc 50 MG Capsule Take 50 mg by mouth daily. Active vitamin D (CHOLECALCIFERO L) 400 UNIT Tablet Take 400 Units by mouth 2 times daily. Active famotidine (PEPCID) 20 MG Tablet TAKE 1 TABLET EVERY EVENING 90 Tab 5 12/24/2015 Active Active Problems No known active problems Family History Medical History Relation Name Comments Emphysema Father Cancer Mother pancreatic Coronary Artery Disease Mother Relation Name Status Comments Father Mother Social History Tobacco Use Types Packs/Day Years Used Date Smoking Tobacco: Never Alcohol Use Standard Drinks/Week Comments No 0 (1 standard drink = 0.6 oz pur e alcohol) Comments Unknown Sex and Gender Information Value Date Recorded Sex Assigned at Not on file Legal Sex Female 12:08 AM CDT Gender Identity Not on file Sexual Orientation Not on file Occupation Industry Job Start Date Job End Date retired [employer] Not on file Not on file Not on file Last Filed Vital Signs Vital Sign Reading Time Taken Comments Blood Pressure 123/79 08/09/2015 11:30 AM CDT Pulse - - Temperature 36 C (96.8 F) 08/09/2015 11:30 AM CDT Respiratory Rate 18 08/09/2015 11:30 AM CDT Oxygen Saturation 98% 08/09/2015 11:30 AM CDT Inhaled Oxygen Concentration - - Weight 91.6 kg (202 lb) 08/09/2015 9:45 AM CDT Height 160 cm (5' 3 ) 08/09/2015 9:45 AM CDT Body Mass Index 35.78 08/09/2015 9:45 AM CDT Plan of Treatment Health Maintenance Due Date Last Done Comments DEXA Bone Density 1950 Hepatitis C Virus (HCV) Screening 1950 TdaP Immunization 1948 Colonoscopy 1993 Colorectal Cancer Screening 1993 Cologuard 1998 Immunochemical Fecal Occult Blood 1998 Pneumococcal Immunization (5 0+ years) (1 of 1 - PCV) 1998 Zoster Immunization (1 of 2) 1998 Respiratory Syncytial Virus (RSV) Immunization (Adult) (1 - 1-dose 75+ series) 2023 Influenza Immunization (#1) 2023 SARS-COV-2 Immunization ( - 2023-25 season) 2023 Hepatitis B Immunization Aged Out No longer eligible based on patient's age to complete this topic Meningococcal Immunization (ACWY) Aged Out No longer eligible based on patient's age to complete this topic Rotavirus Immunization Aged Out No lo nger eligible based on patient's age to complete this topic Insurance MEDICARE CIGNA MEDICARE SUP Care Teams Gear Changer Relationship Specialty Start Date End Date Jess Hobson MD [address] [facility] [address] [place] [address] PCP - General Family Medicine 05/02/15
--- OUTSIDE RECORDS SUMMARY | 2024-06-13 08:07 | XMS_ITS | Referral Summary ---
Author Organization [facility] Address [address] [facility] [place] [address] Care Team Providers Care Job Analysis Manager Name Role Phone Jaxson Bullock MD Primary Care Provider Source Comments [facility],non-owned Affiliates and Associated Physician Practices is amultiple site organization consisting of ambulatory clinics and hospital sitesin [place], [place], [place] and [place]. This disclosure is being madepursuant to the Care Everywhere program and may not contain all information available regarding this patient. Last updated 17.[facility] [employer] Encounters Date Type Department Care Team Description 06/07/2024 3:10 PM ASSISTED LIVING DIRECTOR Clinical Support [facility] - Ophthalmology [address] [place] [phone] Kristal Merritt APRN-CNP Acquired myogenic ptosis of eyelid, bilateral (Primary Dx) 06/07/2024 Travel 06/07/2024 2:30 PM ASSISTED LIVING DIRECTOR Office Visit [facility]mology [address] [place] [phone] Kristal Merritt APRN-CNP Acquired myogenic ptosis of eyelid, bilateral (Primary Dx) 05/13/2024 Telephone [facility]mology [address] [place] [address] [phone] Kristal Merritt APRN-CNP from Last 3 Months Allergies No known active allergies Medications * [...] hand 06/07/2024 Cerebral meningioma 06/07/2024 Hypercholesterolemia 07/16/2016 Social History Tobacco Use Types Packs/Day Years Used Date Smoking Tobacco: Never Assessed Sex and Gender Information Value Date Recorded Sex Assigned at Not on file Gender Identity Not on file Sexual Orientation Not on file Plan of Treatment Not on file Procedures Procedure Name Priority Date/Time Associated Diagnosis Comments SKINNER AUTO VISUAL FIELD EXTENDED Routine 06/07/2024 3:09 PM ASSISTED LIVING DIRECTOR Acquired myogenic ptosis of eyelid, bilateral EYE EXAM 04/20/2024 from Last 3 Months Results * SKINNER AUTO VISUAL FIELD EXTENDED (06/07/2024 3:09 PM ASSISTED LIVING DIRECTOR) Anatomical Region Laterality Modality Head External-Camera Photography Narrative 06/12/2024 10:09 PM CDT Images from the original result were not included. Skinner visual field Reversible superior visual field deficit Right: 16 degrees to 28 degrees Left: 17 degrees to 30 degrees Kristal Merritt VESSEL CREW MEMBER-MILITARY LOGISTICS SPECIALIST OPHTHALMOLOGY S CHED ORD W PACS * EYE EXAM (04/20/2024) Anatomical Region Laterality Modality Other Narrative 04/20/2024 Ordered by an unspecified provider. Scanned Document SCANNING ONLY from Last 3 Months Care Teams Job Analysis Manager Relationship Specialty Start Date End Date Jaxson Bullock MD [address] [place] [address] PCP - General Family Medicine 06/07/24
--- OUTSIDE RECORDS SUMMARY | 2024-06-13 08:07 | XMS_ITS | Patient Health Summary ---
Author Organization [facility] Address [address] [facility] [place] [address] Care Team Providers Care Manpower Development Specialist Manager Name Role Phone Jaxson Bullock MD Primary Care Provider [phone] Note from [facility],non-owned Affiliates and Associated Physician Practices is amultiple site organization consisting of ambulatory clinics and hospital sitesin [place], [place], [place] and [place]. This disclosure is being madepursuant to the Care Everywhere program and may not contain all information available regarding this patient. Last updated 17.[facility] [employer] Allergies No known active allergies Medications * Be aware that medications may not be up to date on this document. Alwaysverify current medications with the patient. * meloxicam (Mobic) 15 MG tablet Take 1 (one) tablet by mouth once daily * simvastatin (Zocor) 10 MG tablet Take 1 (one) tablet by mouth once daily * amLODIPine (Norvasc) 2.5 MG tablet(Started 03/23/2024) Take 1 (one) tablet by mouth once daily * omeprazole (PriLOSEC) 20 MG capsule(Started 03/07/2024) Take 1 (one) capsule by mouth once daily Active Problems Problem Noted Date Diagnosed Date [...] on file Sexual Orientation Not on file Procedures * SKINNER AUTO VISUAL FIELD EXTENDED(Performed 06/07/2024) Performed for Acquired myogenic ptosis of eyelid, bilateral * EYE EXAM(Performed 04/20/2024) * CULTURE URINE(Performed 03/09/2014) Results * SKINNER AUTO VISUAL FIELD EXTENDED (06/07/2024 3:09 PM TUB MENDER) Anatomical Region Laterality Modality Head External-Camera Photography Narrative 06/12/2024 10:09 PM CDT Images from the original result were not included. Skinner visual field Reversible superior visual field deficit Right: 16 degrees to 28 degrees Left: 17 degrees to 30 degrees Kristal Merritt REWIND OPERATOR-CAT SKINNER OPHTHALMOLOGY S CHED ORD W PACS * EYE EXAM (04/20/2024) Anatomical Region Laterality Modality Other Narrative 04/20/2024 Ordered by an unspecified provider. Scanned Document SCANNING ONLY * CULTURE URINE (03/09/2014 1:00 AM TUB MENDER) Culture Urine Less than 10,000 CFU/ML of Normal Urogenital/ Skin Manuela [facility] Comment:. Urine specimen (specimen) URINE SPECIMEN OBTAINED BY CLEAN CATCH PROCEDURE / Unknown 03/09/2014 1:00 AM TUB MENDER 03/09/2014 9:35 AM TUB MENDER Narrative [facility] - 03/11/2014 10:12 AM TUB MENDER AndersonSpecimen#[id number] Jw Loc/Rm/Bed: 3 [facility]/324/01 CLN CATCH U @03/09/14 0109: URINE CULTURE added. RFLXG = UAUCC. Historical Provider LAB - [place] [address], [facility] [phone] Care Teams Manpower Development Specialist Manager Relationship Specialty Start Date End Date Jaxson Bullock MD [address] [place] [address] PCP - General Family Medicine 06/07/24
[2024-06-13 18:46] LABS: Hematocrit 44.6 % (37.0-47.0); Hemoglobin 14.1 g/dL (12.0-15.0); Mean Corpuscular HGB Conc 31.6 g/dl (32-36); Mean Corpuscular Hemoglobin 31.8 pg (26-34); Mean Corpuscular Volume 100.5 fl (80-100); Mean Platelet Volume 10.1 fl (7.4-10.4); Platelet Count Result 296 k/mm3 (150-375); Red Blood Count 4.44 M/mm3 (4.2-5.4); Red Cell Distribution Width 12.3 % (11.5-14.5)
[2024-06-13 18:54] LABS: Alanine Aminotransferase 33 U/L (6-35); Albumin Level 4.3 g/dL (3.5-5.1); Alkaline Phosphatase 129 U/L (38-126); Anion Gap 7 mmol/L (4-12); Aspartate Amino Transferase 64 U/L (14-36); Bilirubin,Total 0.7 mg/dL (0.2-1.3); Blood Urea Nitrogen 20 mg/dL (7-17); Calcium 9.3 mg/dL (8.4-10.2); Carbon Dioxide 28 mmol/L (22-30); Chloride 103 mmol/L (98-107); Cholesterol 186 mg/dL (0-200); Estimated Glomerular Filt Rate > 60; Glucose 87 mg/dL (65-110); HDL Direct 60 mg/dL; Potassium 4.3 mmol/L (3.4-5.0); Sodium 138 mmol/L (137-145); Triglycerides 120 mg/dL (<150)
[2024-06-13 19:07] LABS: LDL Cholesterol Direct 76 mg/dL
[2024-06-13 19:44] LABS: Vitamin B12 > 1000.0 pg/mL (239-931)
[2024-06-13 20:05] LABS: Vitamin D 25 Hydroxy 34.9 ng/mL
[2024-06-15 05:38] LABS: CRP, High Sensitivity 6.6 mg/L
== END 2024-06-13 07:58 | disposition home or self-care (01) ==
LOC: ANHBWCLAB 07:59
PROVIDERS: PCP Family Medicine; Visit Provider Family Medicine
DX: E78.5 Hyperlipidemia, unspecified (principal); Z79.899 Other long term (current) drug therapy; I10 Essential (primary) hypertension; E66.9 Obesity, unspecified; E55.9 Vitamin D deficiency, unspecified; R74.01 Elevation of levels of liver transaminase levels; D32.0 Benign neoplasm of cerebral meninges; G47.33 Obstructive sleep apnea (adult) (pediatric)
CPT/HCPCS: 36415; 80053; 80061; 82306; 82607; 84443; 85027; 86141

== ENCOUNTER 2024-10-05 10:06 | Outpatient (CLI) | payer MEDICARE, SELFPAY ==
--- OUTSIDE RECORDS SUMMARY | 2024-10-05 10:27 | XMS_ITS | Encounter Summary ---
Author Organization [facility] Address [address] [place] [address] Care Team Providers Care Car Record Clerk Name Role Phone Jess Hobson MD Primary Care Provider [phone] Jaxson Bullock MD Primary Care Provider [phone] Encounter Details Date Type Department Care Team (Late st Contact Info) Description 05/13/2024 Telephone [facility] Op[facility]mology [address] [place] [address] [phone] Kristal Merritt, LINE MAINTENANCE SUPERVISOR-[address] [place] [address] Social History Tobacco Use Types Packs/Day Years Used Date Smoking Tobacco: Never Assessed Comments Unknown Sex and Gender Information Value Date Recorded Sex Assigned at Not on file Legal Sex Female 5:25 AM CUSTOMER ACCOUNT REPRESENTATIVE Gender Identity Not on file Sexual Orientation Not on file documented as of this encounter Miscellaneous Notes * Telephone Encounter - Partha Lovelace - 05/13/2024 12:59 PM CST Patient is needing to reschedule her appt on 05/17 to June. Duration for visit is 60. Unable to reschedule for 30 mins slot. Please advise. OMER ACCOUNT REPRESENTATIVE documented in this encounter Plan of Treatment Not on file documented as of this encounter Visit Diagnoses Not on filedocumented in this encounter Care Teams Car Record Clerk Relationship Specialty Start Date End Date Jess Hobson MD [address] [place] [address] [address] [place] [phone] PCP - General 08/08/22 06/06/24 Jaxson Bullock MD [address] [place] [address] PCP - General Family Medicine 06/07/24 documented as of this encounter
--- OUTSIDE RECORDS SUMMARY | 2024-10-05 10:27 | XMS_ITS | Clinical Summary ---
Author Organization [facility] Address [address], [address] [address] Phone Care Team Providers Care Milling Supervisor Name Role Phone Jess Hobson MD Primary Care Provider [phone] Allergies No known active allergies Medications simvastatin [...] 9:45 AM CDT Height 160 cm (5' 3) 08/09/2015 9:45 AM CDT Body Mass Index [...] Insurance MEDICARE CIGNA MEDICARE SUP Care Teams Milling Supervisor Relationship Specialty Start Date End Date Jess Hobson MD [address] [facility] [address] [place] [address] PCP - General Family Medicine 05/02/15
--- OUTSIDE RECORDS SUMMARY | 2024-10-05 10:27 | XMS_ITS | Clinical Summary ---
Author Organization [facility] Address [address] [facility] [place] [address] Care Team Providers Care Quill Skinner Name Role Phone Jaxson Bullock MD Primary Care Provider [phone] Source Comments [facility],non-owned Affiliates and Associated Physician Practices is amultiple site organization consisting of ambulatory clinics and hospital sitesin [place], [place], [place] and [place]. This disclosure is being madepursuant to the Care Everywhere program and may not contain all information available regarding this patient. Last updated 17.[employer] [facility] Allergies No known active allergies Medications * Be aware that medications may not be up to date on this document. Alwaysverify current medications with the patient. meloxicam (Mobic) 15 MG tablet Take 1 (one) tablet by mouth once daily Active simvastatin (Zocor) 10 MG tablet Take 4 (four) tablets by mouth once daily Active amLODIPine (Norvasc) 2.5 MG tablet Take 1 (one) tablet by mouth once daily 03/23/2024 Active omeprazole (PriLOSEC) 20 MG capsule Take 1 (one) capsule by mouth once daily 03/07/2024 Active topiramate (Topamax) 50 MG tablet Take 1 (one) tablet by mouth once daily Active erythromycin (Romycin) 5 MG/GM ophthalmic ointment Instill into both eyes 4 times daily 3.5 g 08/22/2024 Active Active Problems Problem Noted Date Diagnosed Date Myogenic ptosis of bilateral eyelids 08/22/2024 Dermatochalasis of both upper eyelids 08/22/2024 Mechanical ptosis of bilateral eyelids Sleep apnea 06/07/2024 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 Gastroesophageal reflux disease 06/07/2024 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 Cerebral meningioma 06/07/2024 Hypercholesterolemia 07/16/2016 Encounters Date Type Department Care Team Description 08/30/2024 1:00 PM CDT Office Visit [facility] - Ophthalmology [address] [place] [phone] Olamide Fischer MD Acquired myogenic ptosis of eyelid, bilateral (Primary Dx) 08/30/2024 Travel 08/22/2024 7:25 AM CDT - 08/22/2024 9:45 AM CDT Surgery [facility] [address] [place] [phone] Olamide Fischer MD Bilateral ptosis repair via blepharoplasty incision, BILATERAL 08/22/2024 7:21 AM CDT Anesthesia Event [facility] [address] [place] [phone] Lupe Ty MD Rinderer, Mallory, THI-PRACTICAL NURSING INSTRUCTOR 08/22/2024 6:06 AM CDT - 08/22/2024 10:10 AM CDT Hospital Encounter [facility] [address] [place] [phone] Olamide Fischer MD Surgery General Discharge Disposition: Home or Self Care 08/22/2024 Travel from Last 3 Months Social History Tobacco Use Types Packs/Day Years Used Date Smoking Tobacco: Never Smokeless Tobacco: Never Tobacco Cessation:Counseling Given: Not Answered Alcohol Use Standard Drinks/Week Comments Never 0 (1 standard drink = 0.6 oz pur e alcohol) Comments Unknown Sex and Gender Information Value Date Recorded Sex Assigned at Not on file Legal Sex Female 5:25 AM PRODUCT BLENDING SUPERVISOR Gender Identity Not on file Sexual Orientation Not on file Last Filed Vital Signs Vital Sign Reading Time Taken Comments Blood Pressure 123/67 08/22/2024 9:50 AM CDT Pulse 80 08/22/2024 9:50 AM CDT Temperature 36.7 C (98 F) 08/22/2024 9:27 AM CDT Respiratory Rate 20 08/22/2024 9:50 AM CDT Oxygen Saturation 96% 08/22/2024 9:50 AM CDT Inhaled Oxygen Concentration - - Weight 72.6 kg (160 lb) 08/22/2024 6:15 AM CDT Height 154.9 cm (5' 1) 08/22/2024 6:15 AM CDT Body Mass Index 30.23 08/22/2024 6:15 AM CDT Plan of Treatment Health Maintenance [...] - 1-dose 75+ series) 2023 COVID-19 VACCINE (1 - 2023-2 5 season) 2023 DEPRESSION SCREENING 04/06/2024 INFLUENZA VACCINE (Season Ended) 2024 01/18/2020, 01/28/2018, 01/30/2014 HEPATITIS B VACCINE Aged Out No longe r eligible based on patient's age to complete this topic HIB VACCINE Aged Out No longer eligi ble based on patient's age to complete this topic HPV VACCINE Aged Out No longer eligi ble based on patient's age to complete this topic MENINGOCOCCAL (Group B) VACCINE SHARED DECISION-MAKING Aged Out No longer eligible based on patient's age to complete this topic MENINGOCOCCAL GROUPS A/C/Y/W VACCINE Aged Out No longer eligible b ased on patient's age to complete this topic Procedures Procedure Name Priority Date/Time Associated Diagnosis Comments SD FIX LID PTOSIS,LEVATR RESEC,ANHYDROUS AMMONIA PRODUCTION SUPERVISOR 08/22/2024 7:16 AM CDT Acquired myogenic ptosis of eyelid, bilateral Special Needs SUPINE, MAC LOCAL from Last 3 Months Insurance MEDICARE [employer] MEDICARE Care Teams Quill Skinner Relationship Specialty Start Date End Date Jaxson Bullock MD [address] [place] [address] PCP - General Family Medicine 06/07/24
[2024-10-05 19:04] LABS: Iron 102 ug/dL (37-170)
[2024-10-05 19:15] LABS: Percent Iron Saturation 34 % (20-50)
== END 2024-10-05 10:07 | disposition home or self-care (01) ==
PROVIDERS: PCP Family Medicine; Visit Provider Family Medicine
DX: E55.9 Vitamin D deficiency, unspecified (principal); L65.9 Nonscarring hair loss, unspecified; R53.83 Other fatigue; G47.33 Obstructive sleep apnea (adult) (pediatric)
CPT/HCPCS: 36415; 82306; 83540; 83550

== ENCOUNTER 2024-10-28 00:38 | Day surgery (SDC) | payer MEDICARE, SELFPAY ==
[2024-10-21 14:01] VITALS: BMI 29.8
--- NOTE | 2024-10-21 14:23 | PC.NURSE ---
Report to the Outpatient Waiting Room, entrance under the green pavilion located off [facility], at time __6:15AM____ on date __10/28/24____. Planned Procedure Time: ___8:15AM____.? Time changes happen often and if your time is changed the preop area will call you the afternoon before. - You and your visitor will be asked to self-screen and do not enter if you have any COVID symptoms. Please call surgeon if you need to reschedule. - A mask is optional within the hospital at this time. NOTHING TO EAT OR DRINK 8 HRS PRE-OP PER DR GUTIERRES. - No food/LIQUIDS from midnight until time of surgery and no smoking, or chewing tobacco (or any form of nicotine). No chewing gum, candy or mints. Take only the following medications with a SIP of water on the morning of surgery: ___AMLODIPINE DO NOT STOP ANY OF YOUR OTHER PRESCRIPTION MEDICATIONS PRIOR TO SURGERY EXCEPT THE FOLLOWING Hold all vitamins and supplements for 3 days per anesthesiologist.-LAST DOSE 10/24/24. Medications to discontinue per physician ___HOLD MELOXICAM AND IBUPROFEN PER DR GUTIERRES Please no make-up, nail dominican, hairspray, perfume, deodorant, or body powder the day of surgery.? No jewelry (including any body piercings) or valuables the day of surgery, leave them at home.? Please take a shower or bath the night before, or the morning of, surgery with an antibacterial soap.? Wear comfortable, loose fitting clothing.? - Jewelry must be removed prior to entering the operating room.? Rings and piercings that are not removed may be cut off. - The hospital will not accept responsibility for valuables.? - Please leave all valuables, including medications, at home the day of surgery. If you are going home after surgery, a licensed motor driver must drive you home.? - NO public transportation without another adult if you receive anesthesia. - We recommend that an adult stay with you for 24 hours following discharge. - We also recommend that you do not drive, make important decision, drink alcoholic beverages, or take any drugs that were not prescribed by your health care provider for at least 24 hours after your discharge time. Follow any additional instructions given to you from your surgeon. Telephone instructions given to ____PATIENT and asked if any additional questions and then verbalized understanding. Patient advised to call surgeon office or pre surgery nurse liaison [phone] if any additional questions.
--- OUTSIDE RECORDS SUMMARY | 2024-10-28 00:40 | XMS_ITS | Clinical Summary ---
Author Organization [facility] Address [address], [address] [phone] Phone Care Team Providers Care Mine Manager Name Role Phone Jess Hobson MD Primary Care Provider [phone] Allergies No known active allergies Medications simvastatin [...] Health Maintenance Due Date Last Done Comments Hepatitis C Virus (HCV) Screening 1950 TdaP Immunization 1950 Pneumococcal Immunization (5 0+ years) (1 of 1 - PCV) 1998 Zoster Immunization (1 of 2) 1998 Respiratory Syncytial Virus (RSV) Immunization (Adult) (1 - 1-dose 75+ series) 2023 SARS-COV-2 Immunization ( - 2023-25 season) 2023 Influenza Immunization (#1) 2024 Hepatitis B Immunization Aged Out No longer eligible based on patient's age to complete this topic Human Papillomavirus (HPV) Immunization Aged Out No longer eligible b ased on patient's age to complete this topic Meningococcal Immunization (ACWY) Aged Out No longer eligible based on patient's age to complete this topic Rotavirus Immunization Aged Out No lo nger eligible based on patient's age to complete this topic Insurance MEDICARE CIGNA MEDICARE SUP Care Teams Mine Manager Relationship Specialty Start Date End Date Jess Hobson MD [address] [facility] [address] [place] [address] PCP - General Family Medicine 05/02/15
--- OUTSIDE RECORDS SUMMARY | 2024-10-28 00:40 | XMS_ITS | Clinical Summary ---
Author Organization [facility] [email or web address] Address [address] [facility] [place] [address] Care Team Providers Care Maintenance Foreman Name Role Phone Jaxson Bullock MD Primary Care Provider [phone] Source Comments [facility] [email or web address],non-owned Affiliates and Associated Physician Practices is amultiple site organization consisting of ambulatory clinics and hospital sitesin [place], [place], [place] and [place]. This disclosure is being madepursuant to the Care Everywhere program and may not contain all information available regarding this patient. Last updated 17.[email or web address] Allergies No known active allergies Medications * [...] Description 08/30/2024 1:00 PM CDT Office Visit [facility] - Ophthalmology [address] [place] [address] Olamide Fischer MD Acquired myogenic ptosis of eyelid, bilateral (Primary Dx) 08/30/2024 Travel 08/22/2024 7:25 AM CDT - 08/22/2024 9:45 AM CDT Surgery [facility] [address] [place] [phone] Olamide Fischer MD Bilateral ptosis repair via blepharoplasty incision, BILATERAL 08/22/2024 7:21 AM CDT Anesthesia Event [facility] [address] [place] [phone] Lupe Ty MD Rinderer, Mallory, THI-HEATER MECHANIC 08/22/2024 6:06 AM CDT - 08/22/2024 10:10 AM CDT Hospital Encounter [facility] [address] [place] [phone] Olamide Fischer MD Surgery General Discharge Disposition: [...] on file Legal Sex Female 5:25 AM INSULATOR APPRENTICE Gender Identity Not on file Sexual Orientation [...] season) 2023 DEPRESSION SCREENING 04/06/2024 INFLUENZA VACCINE (#1) 2024 0, 01/28/2018, 01/30/2014 HEPATITIS B VACCINE Aged Out [...] Procedure Name Priority Date/Time Associated Diagnosis Comments PA FIX LID PTOSIS,LEVATR RESEC,BOILER RIVETER 08/22/2024 7:16 AM CDT Acquired myogenic ptosis of eyelid, bilateral Special Needs SUPINE, MAC LOCAL HH from Last 3 Months [place] [address] [place] [address] Care Teams Maintenance Foreman Relationship Specialty Start Date End Date Jaxson Bullock MD [address] [place] [address] PCP - General Family Medicine 06/07/24
--- OUTSIDE RECORDS SUMMARY | 2024-10-28 00:40 | XMS_ITS | Encounter Summary ---
Author Organization [facility] Address [address] [place] [address] Care Team Providers Care Associate Software Application Engineer Name Role Phone Jess Hobson MD Primary Care Provider [phone] Jaxson Bullock MD Primary Care Provider [phone] Encounter Details Date Type Department Care Team (Late st Contact Info) Description 05/13/2024 Telephone [facility] - Ophthalmology [address] [place] [address] [phone] Kristal Merritt, SUPERINTENDENT RENTING MANAGING-[address] [place] [address] Social History Tobacco Use Types Packs/Day Years Used Date Smoking Tobacco: Never Assessed Comments Unknown Sex and Gender Information Value Date Recorded Sex Assigned at Not on file Legal Sex Female 5:25 AM PRINCIPAL CLERK TYPIST Gender Identity Not on file Sexual Orientation Not on file documented as of this encounter Miscellaneous Notes * Telephone Encounter - Partha Lovelace - 05/13/2024 12:59 PM CST Patient is needing to reschedule her appt on 05/17 to June. Duration for visit is 60. Unable to reschedule for 30 mins slot. Please advise. CIPAL CLERK TYPIST documented in this encounter Plan of Treatment Not on file documented as of this encounter Visit Diagnoses Not on filedocumented in this encounter Care Teams Associate Software Application Engineer Relationship Specialty Start Date End Date Jess Hobson MD [address] [place] [address] [address] [place] [address] PCP - General 08/08/22 06/06/24 Jaxson Bullock MD [address] [place] [address] PCP - General Family Medicine 06/07/24 documented as of this encounter
[2024-10-28 06:43] VITALS: BP 141/74; RESP 20; TEMP 36.2; O2SAT 100
--- NOTE | 2024-10-28 06:48 | WPDHPUPDATE1 ---
History and Physical Update Update Date/Time: 10/28/24 06:48 Patient seen and examined in pre-operative holding area. No interval change in medical history or symptoms. Patient recalls previous discussion of benefits and alternatives to procedure. Continues to desire to proceed with right ring finger trigger release . Reviewed procedure, post-op expectations and risks including but not limited to bleeding, infection, injury to tendon/nerve/vessel, decreased hand function, stiffness, RSD, no change or worsening of symptoms. I discussed the possible use of assistants and their participation in the case. Patient stated understanding and signed the consent form wishing to proceed.
--- NOTE | 2024-10-28 06:49 | W.PM.PROC2 ---
Procedure Note - Detailed Date of Procedure 10/28/24 Pre-op Diagnosis Right Ring Trigger Finger Post-op Diagnosis Same Procedure Performed right ring finger a1 hannah release Surgeon Leonel Gerber MD Dry Press Operator aisha campos pa-c Anesthesia MAC Description of Procedure INFORMED CONSENT: The patient was seen and examined and marked in the pre-op area.? The patient signed the consent form. PROCEDURE IN DETAIL:The patient taken back to OR on the stretcher in supine position. Time out performed with anesthesia, surgeon and staff agreeing on patient's name site and surgery to be performed SCDs were placed on the lower extremities and inflated. A tourniquet was placed on {right} upper extremity and antibiotics given IV After anesthesia administered sedation I injected {3}cc 1%lido and 0.5% marcaine plain at the operative site The?{right upper extremity}?was prepped and draped in sterile fashion the??{right upper extremity} was? exsanguinated with Esmarch bandage and tourniquet inflated to 250mmHg I proceeded with making a longitudinal incision over the right ring finger A1 hannah through skin and dermis with a 15 blade scalpel. Littler scissors were used to spread through subcutaneous tissue down to the A1 hannah. The A1 hannah was identified and initially incised with 15 blade scalpel. Littler scissors were used to spread above and below it proximally and distally completing the transection entirely. Ragnell retractor was used withdrawal the FDS and FDP tendons for inspection. The tendons were free of masses but had a small of hyperemic synovitis that was removed with littler scissors. The tendons were gliding smoothly in the sheath without triggering or crepitus. Irrigated with normal saline and closed with 4-0 chromic. A dressing of xeroform, 4x4, aarti,and an malachi bandage was applied after the tourniquet was let down noting the hand was warm and well perfused. The patient was then awaken from anesthesia and transferred to the recovery room in stable condition.? Complications - none EBL- 0cc Disposition - home in stable condition Aisha Campos PA-C was essential for positioning, retraction, closure and dressing placement [facility] Billing Surgery - Charge Forward: Surgery Billing ([id number] for aisha)
[2024-10-28] MEDS: ACETAMINOPHEN 500 MG TABLET 1000 MG PO (07:19)
[2024-10-28] MEDS: LACTATED RINGERS 1,000 ML 30 ML IV CONT (07:20)
--- NOTE | 2024-10-28 08:02 | P.PNAN_ITS ---
Anes - Initial Pre Proc Eval Procedure: Operation Date: 10/28/24 08:15 Proposed Procedures p Right Ring A-1 Sammie Release - Leonel Gerber MD Date/Time: 10/28/24 08:02 Surgeon: Leonel Gerber MD Pre Op Diagnosis: Right Ring Trigger Finger Patient Data Age: 74 Gender: F Height: 1.57 m Weight: 74 kg Allergies Allergy/AdvReac Type Severity Reaction Status Date / Time No Known Allergies Allergy Verified 10/28/24 07:17 Home Medications ?Medication ?Instructions ?Recorded ?Confirmed ?Type calcium carbonate 600 mg PO DAILY 10/28/21 10/28/24 History omeprazole 20 mg capsule,delayed See Rx Instructions .Route 06/09/24 10/28/24 Rx release .COMPLEX #90 caps simvastatin 40 mg tablet 40 mg PO DAILY #90 tabs 06/20/24 10/28/24 Rx amlodipine 2.5 mg tablet See Rx Instructions .Route 08/22/24 10/28/24 Rx .COMPLEX #30 tabs meloxicam 15 mg tablet See Rx Instructions .Route 09/13/24 10/28/24 Rx .COMPLEX #30 tabs ibuprofen 200 mg tablet (Advil) 200 mg PO Q6H PRN pain 10/21/24 10/28/24 History Patient hx anesthesia problems: none Family hx anesthesia problems: none Results Review: All pre-operative results and documents have been reviewed as part of the pre- operative evaluation. [facility] Past Medical History Medical History GERD (gastroesophageal reflux disease) Hyperlipidemia Family History Family History Father Hypertension Mother Heart disease Hypertension Sibling Hypertension Diabetes mellitus Social History Social History Smoking status: Never smoker Second hand tobacco smoke exposure: No Alcohol intake: never Substance use: current Substance use type: does not use Do You Feel Safe in your Home?: Yes Lack of Transportation: No Lack of Food: Never True Current Housing: I Have Housing Concerned About Future Housing: No Difficulty Paying Gas/Electric Bills: No Difficulty Paying for Meds: No Currently Unemployed: No Education: High School Diploma/GED Difficulty w/ Childcare or Family Care: No Living arrangements: with family Additional living arrangements comments: [place] Occupation/Education: retired Gender identity (if verbalized by the patient): Female Spiritual care concerns: No Anes - Eval Final PreProcedure Day of Procedure 10/28/24 08:02 Patient weight: overweight Heart: regular rate and rhythm Lungs: clear to auscultation Airway: Mallampati scale class II Neurological: alert and oriented Last oral intake: >/= 8 hours ASA classification: III Emergent: no Anesthetic plan: proceed Anesthesia type and monitoring: general GIVS and standard monitoring Results Review: All pre-operative results and documents have been reviewed as part of the pre- operative evaluation. Informed Consent: The patient's anesthetic plan and its attendant risks and benefits were discussed with the patient/family/POA. Questions were solicited and answers provided to the satisfaction of the patient/family/POA.
[2024-10-28] MEDS: ceFAZolin 2 GM in SODIUM CHLORIDE 0.9% IV 50 ML 100 ML IVPB (08:31)
[2024-10-28] MEDS: LIDOCAINE 1% LOCAL INJ 10 ML VIAL INFILTRATE (08:41)
[2024-10-28] MEDS: BUPivacaine HCL 0.5% 10 ML AMP INFILTRATE (08:41)
[2024-10-28 08:48] VITALS: BP 114/62; PULSE 70; RESP 14; O2SAT 99
[2024-10-28 09:15] VITALS: BP 127/58; PULSE 67; RESP 18; O2SAT 100
[2024-10-28 09:40] VITALS: BP 128/59; PULSE 67; RESP 16
== END 2024-10-28 09:45 | disposition home or self-care (01) ==
PROVIDERS: PCP Family Medicine; Visit Provider Plastic Surgery
PROC: (CPT 26055; principal; 2024-10-28 08:15)
DX: M65.341 Trigger finger, right ring finger (principal)
CPT/HCPCS: 26055; J0690; A9270; J1100; J2003; J2405; J2704; J3010; J7120

== ENCOUNTER 2025-02-15 08:32 | Outpatient (CLI) | payer MEDICARE, SELFPAY ==
--- NOTE | ~2025-02-15 | MM_ITS ---
EXAMINATION: MM screening raine BI w prasanna HISTORY: Screening TECHNIQUE: Craniocaudal and mediolateral oblique 3-D tomosynthesis images were obtained and synthetic 2-D images were generated. CAD analysis was submitted and interpreted. COMPARISON: No prior mammogram is available for comparison at this institution. BREAST PARENCHYMAL COMPOSITION: Not dense: There are scattered areas of fibroglandular density. FINDINGS: There is no evidence of suspicious mass, calcification, or architectural distortion to suggest malignancy in either breast. There has been no suspicious interval change. IMPRESSION: 1. No mammographic evidence of malignancy. 2. Recommend routine screening mammography in one year. BI-RADS Category 1: Negative Reviewed, dictated and finalized at location B. [facility] [employer]
--- OUTSIDE RECORDS SUMMARY | 2025-02-15 08:53 | XMS_ITS | Clinical Summary ---
Author Organization [facility] Address [address] [place] [address] Care Team Providers Care Sub Master Name Role Phone Jaxson Bullock MD Primary Care Provider [phone] [facility],non-owned Affiliates and Associated Physician Practices is amultiple site organization consisting of ambulatory clinics and hospital sitesin [place], [place], [place] and [place]. This disclosure is being madepursuant to the Care Everywhere program and may not contain all information available regarding this patient. Last updated 17.[facility] Allergies No known active allergies Medications * [...] on file Legal Sex Female 5:25 AM STUCCO MASON Gender Identity Not on file Sexual Orientation [...] yrs (1 - 1-dose 75+ series) 2023 DEPRESSION SCREENING 04/06/2024 COVID-19 VACCINE ( - 2023-2 5 season) 2024 INFLUENZA VACCINE (#1) 2024 0, 01/28/2018, 01/30/2014 [...] age to complete this topic Insurance [facility]ICARE [facility] Care Teams Sub Master Relationship Specialty Start Date End Date Jaxson Bullock MD [address] [place] [phone] PCP - General Family Medicine 06/07/24
--- OUTSIDE RECORDS SUMMARY | 2025-02-15 08:53 | XMS_ITS | Encounter Summary ---
Author Organization [facility] Address [address] [place] [address] Care Team Providers Care Batch Unit Treater Name Role Phone Jess Hobsno MD Primary Care Provider [phone] Jaxson Bullock MD Primary Care Provider [phone] Encounter Details Date Type Department Care Team (Late st Contact Info) Description 05/13/2024 Telephone [facility] - Ophthalmology [address] [place] [address] [phone] Kristal Merritt, CAMP BOSS-[address] [place] [address] Social History Tobacco Use Types Packs/Day Years Used Date Smoking Tobacco: Never Assessed Comments Unknown Sex and Gender Information Value Date Recorded Sex Assigned at Not on file 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 Duration for visit is 60. Unable to reschedule for 30 mins slot. Please advise. ER SECURITY ADMINISTRATOR documented in this encounter Plan of Treatment Not on file documented as of this encounter Visit Diagnoses Not on filedocumented in this encounter Care Teams Batch Unit Treater Relationship Specialty Start Date End Date Jess Hobson MD [address] [place] [address] [address] [place] [address] PCP - General 08/08/22 06/06/24 Jaxson Bullock MD [address] [place] [address] PCP - General Family Medicine 06/07/24 documented as of this encounter
--- OUTSIDE RECORDS SUMMARY | 2025-02-15 08:53 | XMS_ITS | Clinical Summary ---
Author Organization [facility] Address [address], [address] [address] Phone Care Team Providers Care Office Manager Executive Assistant Name Role Phone eJss Hobson MD Primary Care Provider [phone] Allergies No known active allergies Medications simvastatin [...] 1998 Zoster Immunization (1 of 2) 1998 Medicare Initial AWV [id number] 04/06/2014 Respiratory Syncytial Virus (RSV) Immunization (Adult) (1 - 1-dose 75+ series) 2023 Influenza Immunization (#1) 2024 SARS-COV-2 Immunization ( - 2023- season) 2024 Hepatitis B Immunization Aged Out No [...] Insurance MEDICARE [employer] MEDICARE SUP Care Teams Office Manager Executive Assistant Relationship Specialty Start Date End Date Jess Hobson MD [address] [place] [address] PCP - General Family Medicine 05/02/15
== END 2025-02-15 08:33 | disposition home or self-care (01) ==
PROVIDERS: PCP Family Medicine; Visit Provider Family Medicine
DX: Z12.31 Encounter for screening mammogram for malignant neoplasm of breast (principal)
CPT/HCPCS: 77063; 77067